=== PATIENT | male | born 1980 | race Caucasian/White ===

== ENCOUNTER → 2017-09-03 | Outpatient (CLI) | payer BC ==
--- NOTE | 2017-09-04 07:03 | US ---
EXAMINATION TYPE: US thyroid st tissue head/neck DATE OF EXAM: 09/03/2017 COMPARISON: NONE CLINICAL HISTORY: E04.1 THYROID NODULE; patient c/o midline palpable x 12 days; hoarse voice x 3 anayeli hs; dizziness GLAND SIZE: Right Lobe: 5.8 x 2.0 x 2.1 cm Overall Parenchyma: homogenous Left Lobe: 4.6 x 1.8 x 1.9 cm Overall Parenchyma: homogeneous Isthmus Thickness: 0.5 cm NODULES RIGHT: # of nodules measured on right: 0 LEFT: # of nodules measured on left: 0 ISTHMUS: # of nodules measured in the isthmus: 0 Bilateral neck scanned, no evidence of lymphadenopathy. At area of midline neck palpable no mass is seen; however, lobular appearance( indentation of the str ap muscle) without mass is noted at right isthmus on images # 22 through 24, and # 45. IMPRESSION: Right thyroid lobe is asymmetrically slightly enlarged but overall thyroid is homogeneous without wor risome solid or cystic nodule identified.
== END | disposition home or self-care (01) ==
LOC: RADUSWWP 16:04
PROVIDERS: ATTEND Family Medicine
DX: E04.9 Nontoxic goiter, unspecified (principal)
CPT/HCPCS: 76536

== ENCOUNTER → 2017-09-04 | Outpatient (CLI) | payer BC ==
[~2017-09-04] MED LIST: REGADENOSON 0.4 MG/5 ML SYRINGE IV ONE
--- NOTE | 2017-09-04 14:00 | NM ---
"EXAMINATION TYPE: NM stress lexiscan cardiolite DATE OF EXAM: 09/04/2017 COMPARISON: NONE HISTORY: Chest pain, R07.9 TECHNIQUE: After the intravenous administration of 10.29 mCi Tc 99m Sestamibi - Cardiolite resting S PECT images acquired 45 minutes post injection. The patient received 0.4mg Lexiscan, 25.7 mCi Tc 99m Sestamibi - Stress images obtained [address] injection FINDINGS: Review of stress and rest SPECT images demonstrates decreased radiopharmaceutical uptake along the an terolateral wall left ventricle on stress and rest imaging, more so on rest than stress. There is corinna e questionable decreased uptake along the apex on stress as compared to rest images however.. Gated analysis shows normal wall motion with an estimated left ventricular ejection fraction of 66 %. IMPRESSION: Difficult to exclude pharmacologically induced left ventricular myocardial ischemia at the cardiac ap ex, correlate for any history of prior infarct along the anterior wall. A Yellow level critical message alert has been initiated for Milo Kenney MD via the [employer] 36 0 | Critical Results System on 09/04/2017 1:58 PM. This message alert has been sent to Milo Kenney MD via the preferences provided by the clinician for the receipt of Radiology Critical Findings. Zapproved age ID [id number]."
--- NOTE | 2017-09-05 11:59 | EST ---
EXERCISE STRESS AGE: 37 SEX: M HT: 69" WT: 220 PROTOCOL: Lexiscan Cardiolite Stress Test HEART RATE REST: 74 BLOOD PRESSURE REST: 138/81 MAXIMUM HEART RATE ACHIEVED: 82 MAXIMUM BLOOD PRESSURE: 143/77 85% MPHR: 152 100% MPHR: 184 INDICATIONS: Dizzy/faint. CLINICAL INFORMATION: A Lexiscan Cardiolite study was performed. Peak heart rate of 82 was achieved. Maximum blood pressure 143/77 mmHg was noted. Resting EKG shows normal sinus rhythm with normal WI interval and QRS duration and normal ST-T waves. No ST-segment depression suggestive of ischemia was noted. The results of the nuclear study will follow. MMROCKL / IJN: [id number] /
== END | disposition home or self-care (01) ==
LOC: RADNMMAIN 08:04
PROVIDERS: ATTEND Family Medicine
DX: R07.9 Chest pain, unspecified (principal)
CPT/HCPCS: 93017; 78452; A9500; J2785

== ENCOUNTER → 2017-09-19 | Outpatient (CLI) | payer BC | END | disposition home or self-care (01) | LOC: PTMAIN 10:03 | PROVIDERS: ATTEND Otolaryngology | DX: K21.9 Gastro-esophageal reflux disease without esophagitis (principal) | CPT/HCPCS: 31579 ==

== ENCOUNTER → 2017-09-25 | Outpatient (CLI) | payer BC ==
--- NOTE | 2017-09-30 20:37 | EEG ---
VIDEO ELECTRONYSTAGMOGRAPHIC REPORT: AGE: 37 VNG INDICATIONS: A 37-year-old male with dizziness for 6 months related to physical therapy with cervical traction onset gradual dizziness 2-3 times a week. Ringing in the ears intermittently on the right and pressure in both ears on occasion. VNG FINDINGS: SPONTANEOUS NYSTAGMUS: SACCADES: Saccades shows intact peak velocities accuracy and latencies. GAZE TEST: Gaze with fixation shows no nystagmus in any of the directions of gaze including centrally with vision denied. SINUSOIDAL TRACKING: Tracking shows smooth tracking, no break-ups. OKN TEST: Optokinetic nystagmus shows no significant asymmetry. ABDOULAYE-HALLPIKE TEST: Abdoulaye-Hallpike maneuvers are negative bilaterally. POSITION TEST: Static position testing in 6 different positions with eyes opened and then with vision denied shows no nystagmus. CALORIC TEST: Caloric testing is inconclusive due to bilateral caloric weakness. CONCLUSIONS: VNG testing shows no central features. No nystagmus encountered during the entire study. Abdoulaye-Hallpike maneuvers are negative. Caloric testing is indeterminate due to bilateral caloric weakness. Another test, such as the head thrust test or if available, active and passive rotation testing is required to confirm presence of bilateral vestibular dysfunction. Clinical correlation necessary. MMODL / IJN: [id number] / WILLAM
== END | disposition home or self-care (01) ==
LOC: NEUROMAIN 07:10
PROVIDERS: ATTEND Otolaryngology
DX: R42 Dizziness and giddiness (principal)
CPT/HCPCS: 92537; 92540

== ENCOUNTER 2018-05-11 07:57 | Day surgery (SDC) | payer BC ==
[2018-05-05 15:05] VITALS: BMI 31.7
[~2018-05-11 07:57] MED LIST changes: -REGADENOSON 0.4 MG/5 ML SYRINGE IV ONE; +SODIUM CHLORIDE 0.9% 1,000 ML IV SCH
[2018-05-11] MEDS ORDERED: SODIUM CHLORIDE 0.9% 500 ML 500 ML IV ONE (08:23)
[2018-05-11 08:25] VITALS: RESP 16; TEMP 97.5
[2018-05-11 11:08] VITALS: BP 132/90; PULSE 71
--- NOTE | 2018-05-11 12:15 | P.PCN ---
Preoperative Diagnosis: Symptoms Recurrent syncope Twelve-lead ECG shows sinus rhythm normal DC narrow QRS normal ST segments No delta waves no epsilon waves normal ST segments normal QT interval Tilt table test per protocol Baseline blood pressure 140/70 mmHg Baseline 165 beats a minute Patient was tilted upright at an angle of 70 per protocol no change in heart rate or blood pressure no symptoms noted Patient is supine at the end of the procedure Impression Normal heart rate and blood pressure response to upright tilting No evidence for neurocardiogenic syncope Normal 12-lead ECG
== END 2018-05-11 11:03 | disposition home or self-care (01) ==
LOC: CATHEP 07:57
PROVIDERS: ATTEND Internal Medicine Clinical Cardiac Electrophysiology
DX: R55 Syncope and collapse (principal); I10 Essential (primary) hypertension; Z79.899 Other long term (current) drug therapy
CPT/HCPCS: 93660

== ENCOUNTER → 2018-07-06 | Outpatient (CLI) | payer BC ==
--- NOTE | 2018-07-06 14:03 | CT ---
EXAMINATION TYPE: CT angio neck DATE OF EXAM: 07/06/2018 HISTORY: Dizziness after exertion COMPARISON: None CT DLP: 464 mGycm. Automated Exposure Control for Dose Reduction was Utilized. TECHNIQUE: CTA scan of the neck is performed with IV Contrast, patient injected with 65 mL of Isovue 370, axial images are obtained, coronal and sagittal reformatted images are reviewed. Three-D recons tructed images are created on an independent workstation and reviewed. FINDINGS: Carotid/Vascular Structures: Right internal carotid artery origin is patent without significant flow- limiting stenosis. No significant flow-limiting stenosis at the left internal carotid artery origin. The bilateral distal internal carotid arteries are very tortuous. Three-D reconstructed in linear rec onstructed images appear to have communication vessels which is felt to be due to reconstruction air. On source images obvious communication vessels are not identified. The vessels however are very redu ndant at this level. Vertebral arteries are codominant. Other: Proximal [place] of [place] within the [id number] appears unremarkable. IMPRESSION: 1. No significant flow-limiting stenosis. 2. Very redundant distal internal carotid arteries below the skull base bilaterally.
== END ==
LOC: RADCTMAIN 10:50
PROVIDERS: ATTEND Family Medicine
DX: R07.9 Chest pain, unspecified (principal)
CPT/HCPCS: 70498; Q9967

== ENCOUNTER 2020-09-10 17:27 | Emergency (ER) | payer BC, OTHER ==
[2020-09-10 17:32] VITALS: BP 166/86; PULSE 110; RESP 18; TEMP 97.9
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
== END 2020-09-10 18:03 | disposition home or self-care (01) ==
LOC: EC 17:27
DX: R10.9 Unspecified abdominal pain (principal); V49.9XXA Car occupant (driver) (passenger) injured in unspecified traffic accident, initial encounter; Z90.49 Acquired absence of other specified parts of digestive tract; Y93.I9 Activity, other involving external motion
CPT/HCPCS: 99283

== ENCOUNTER → 2021-03-05 | Outpatient (CLI) | payer BC ==
[2021-03-06 04:48] LABS: African American GFR (CKD) 109.4 (60.0-200.0); Albumin 4.6 g/dL (3.80-4.90); Albumin/Globulin Ratio 1.84 (1.60-3.17); Calcium 9.8 mg/dL (8.7-10.3); Globulin 2.5 g/dL (1.6-3.3); Non-African American GFR(CKD) 94.4 (60.0-200.0); Potassium 3.7 mmol/L (3.5-5.5); Total Bilirubin 0.6 mg/dL (0.2-1.2); Total Protein 7.1 g/dL (6.2-8.2)
== END | disposition home or self-care (01) ==
LOC: LABWHC1 14:42
PROVIDERS: ATTEND Physician Assistant
DX: Z00.00 Encounter for general adult medical examination without abnormal findings (principal); Z20.822 Contact with and (suspected) exposure to COVID-19; I10 Essential (primary) hypertension; R53.82 Chronic fatigue, unspecified
CPT/HCPCS: 36415; 80053; 86769

== ENCOUNTER → 2021-08-15 | Outpatient (CLI) | payer BC ==
[2021-08-16 01:21] LABS: Gliadin AB IgA, Deaminated NEGATIVE (NEGATIVE); Gliadin AB IgA, Unit 1.5 U/mL; Gliadin AB IgG, Deaminated NEGATIVE (NEGATIVE); Gliadin AB IgG, Unit <0.4 U/mL; Tis Transglutaminase IgA Unit <0.5 AI; Tis Transglutaminase IgG Unit <0.8 U/mL; Tissue Transglutaminase IgA NEGATIVE (NEGATIVE); Tissue Transglutaminase IgG NEGATIVE (NEGATIVE)
== END | disposition home or self-care (01) ==
LOC: LABWHC1 16:04
PROVIDERS: ATTEND Internal Medicine
DX: R10.9 Unspecified abdominal pain (principal)
CPT/HCPCS: 36415; 83516

== ENCOUNTER → 2021-10-03 | Outpatient (CLI) | payer BC ==
--- NOTE | 2021-10-04 07:46 | XR ---
Lumbar spine HISTORY: Low back pain 3 views of the lumbar spine, no comparisons Lumbar vertebral bodies show preserved height, alignment, bone mineralization. Sclerosis present in t he posterior elements of the lumbosacral spine junction. Mild disc height loss present L5-S1. Surgica l clips are present in the right upper quadrant. IMPRESSION: Mild degenerative disc disease, facet arthropathy
== END | disposition home or self-care (01) ==
LOC: RADXRMAIN 16:01
PROVIDERS: ATTEND Internal Medicine
DX: M47.817 Spondylosis without myelopathy or radiculopathy, lumbosacral region (principal); M51.37 Other intervertebral disc degeneration, lumbosacral region
CPT/HCPCS: 72100

== ENCOUNTER → 2023-04-18 | Outpatient (CLI) | payer BC ==
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
== END | disposition home or self-care (01) ==
LOC: RADXRMAIN 16:09
PROVIDERS: ATTEND Internal Medicine
DX: M54.18 Radiculopathy, sacral and sacrococcygeal region (principal); S50.11XA Contusion of right forearm, initial encounter; S80.211A Abrasion, right knee, initial encounter; X58.XXXA Exposure to other specified factors, initial encounter
CPT/HCPCS: 72220